=== PATIENT | male | born 1990 | race African-American/Black ===

== ENCOUNTER 2017-06-05 18:11 | Emergency (ER) | payer SELFPAY ==
[~2017-06-05] VITALS: Ht 175.3 cm; Wt 79.5 kg
[~2017-06-05 18:11] MED LIST: BACT800T5 PO; CEPH500C3 PO
[2017-06-05 18:12] VITALS: BP 159/90; PULSE 84; RESP 18; TEMP 98.9; O2SAT 100
[2017-06-05] MEDS ORDERED: AMOX500T PO (20:14)
[2017-06-05] MEDS ORDERED: DICL75TA PO (20:14)
--- NOTE | 2017-06-05 20:17 | PD ---
HPI Chief Complaint: Oral / Dental Pain or Problem Time Seen by Provider: 20:09 Travel History International Travel<30 days: No Contact w/Intl Traveler<30days: No Traveled to known affect area: No History of Present Illness HPI 26-year-old black male presents to emergency department with complaints of right lower dental pain and facial swelling. He states that the last 3 days it has become increasingly painful swollen. Symptoms are moderate. No alleviating factors. No fever chills. No difficulty swallowing. PFSH Past Medical History Medical History: Denies Significant Hx Immunizations Current: Yes Tetanus Vaccination: < 5 Years Past Surgical History Surgical History: No Previous Surgery Social History Alcohol Use: No Tobacco Use: Yes (09/08 PPD) Substance Use: No Allergies-Medications (Allergen,Severity, Reaction): Coded Allergies: No Known Allergies (Verified , 03/31/16) Reported Meds & Prescriptions Reported Meds & Active Scripts Active Bactrim DS (Sulfamethoxazole-Trimethoprim DS) 1 Tab Tab 1 Tab PO Q12 7 Days Keflex (Cephalexin Monohydrate) 500 Mg Cap 500 Mg PO QID 7 Days Review of Systems General / Constitutional: No: Fever Eyes: No: Visual changes HENT: Positive: Dental Difficulties, No: Headaches, Sore Throat, Gingival Bleeding, Ear Discharge Cardiovascular: No: Chest Pain or Discomfort Respiratory: No: Shortness of Breath Gastrointestinal: No: Abdominal Pain Genitourinary: No: Dysuria Musculoskeletal: No: Pain Skin: No Rash Neurologic: No: Weakness Psychiatric: No: Depression Endocrine: No: Polydipsia Hematologic/Lymphatic: No: Easy Bruising Physical Exam Narrative GENERAL: Well-developed, well-nourished in no acute distress. Nontoxic appearing. HEAD: Patient has mild swelling to the right lower mandible in the area of his dental infection. EYES: Pupils equal round and reactive. Extraocular motions intact. No scleral icterus. No injection or drainage. ENT: TMs clear without erythema. The external auditory canals clear. Nose: clear . Posterior pharynx is pink and moist. No tonsillar edema or exudate. Uvula midline. Airway patent. Patient has diffuse periodontal disease. He has a large dental carry in tooth #28. It is decayed and has gingival erythema. Tender to percussion. NECK: Trachea midline.Supple, nontender, moves head freely. No central bony tenderness or spasm. CARDIOVASCULAR: Regular rate and rhythm without murmurs, gallops, or rubs. RESPIRATORY: Clear to auscultation. Breath sounds equal bilaterally. No wheezes , rales, or rhonchi. GASTROINTESTINAL: Abdomen soft, non-tender, nondistended. No hepato-splenomegaly , or palpable masses. No guarding. EXTREMITIES: No clubbing, cyanosis, or edema. No joint tenderness, effusion, or edema noted. BACK: Nontender without deformity or crepitance. No flank tenderness. Data Data Last Documented VS Vital Signs Date Time Temp Pulse Resp B/P (MAP) Pulse Ox O2 Delivery O2 Flow Rate FiO2 06/05/17 18:12 98.9 84 18 159/90 (113) 100 Room Air Orders Orders Ed Discharge Order (06/05/17 20:11) MDM Medical Decision Making Medical Screen Exam Complete: Yes Emergency Medical Condition: Yes Medical Record Reviewed: Yes Differential Diagnosis MDM: Moderate Differential diagnoses: Dental abscess, dental caries, osteitis, cellulitis Narrative Course This is dental abscess Diagnosis Primary Impression: Dental abscess Patient Instructions: General Instructions Additional Instructions: Rest. [place] gargles. [place] oil on cotton balls. Amoxicillin and diclofenac follow-up with a dentist as soon as possible. And return to the ER if any problems. Med/Other Pt SpecificInfo: Prescription(s) given Scripts Diclofenac Sodium DR (Diclofenac Sodium DR) 75 Mg Tabdr 75 MG PO BID, #20 TAB 0 Refills Prov: Chantal Campoverde DO 06/05/17 Amoxicillin (Amoxicillin) 500 Mg Tab 500 MG PO TID for Infection for 10 Days, TAB 0 Refills Prov: Chantal Campoverde DO 06/05/17 Disposition: 01 DISCHARGE HOME Condition: Stable Milton Heck Jun 05, 2017 20:17
[2017-06-05] MEDS ORDERED: AMOXICILLIN (TRIHYDRATE) 500 MG CAP PO ONE (21:00)
[2017-06-05] MEDS ORDERED: ACETAMINOPHEN/HYDROcodone 325 MG/5 MG TAB PO ONE (21:00)
== END 2017-06-05 21:02 | disposition home or self-care (01) ==
LOC: NEPK 18:11
DX: K04.7 Periapical abscess without sinus (principal); F17.200 Nicotine dependence, unspecified, uncomplicated
CPT/HCPCS: 99284